=== PATIENT | male | born 1995 | race Two or more races ===

== ENCOUNTER 2025-04-22 08:55 | Emergency (ER) | payer MEDICAID ==
[~2025-04-22] VITALS: Ht 177.8 cm; Wt 82.0 kg
[2025-04-22 08:57] VITALS: BP 123/82; PULSE 78; RESP 12; TEMP 98.1; O2SAT 99
== END 2025-04-22 10:22 | disposition left against medical advice (07) ==
LOC: ER 08:55
DX: F10.129 Alcohol abuse with intoxication, unspecified (principal); Z53.21 Procedure and treatment not carried out due to patient leaving prior to being seen by health care provider; Y90.9 Presence of alcohol in blood, level not specified
CPT/HCPCS: 99281